=== PATIENT | female | born 1985 | race Caucasian/White ===

== ENCOUNTER 2019-02-15 15:20 | Outpatient (CLI) | payer BC ==
[2019-02-15] MEDS ORDERED: ASPI-496 PO (15:59)
[2019-02-15] MEDS ORDERED: DOCU240C53 PO (15:59)
[2019-02-15] MEDS ORDERED: TRAM50TA2 PO (15:59)
[2019-02-15] MEDS ORDERED: IRON SUPP PO (15:59)
[2019-02-15] MEDS ORDERED: MIRALAX PO (15:59)
== END 2019-02-15 23:59 | disposition home or self-care (01) ==
LOC: STAR 15:20
PROVIDERS: ATTEND Internal Medicine Geriatric Medicine
DX: Z02.9 Encounter for administrative examinations, unspecified (principal)